=== PATIENT | male | born 1995 | race African-American/Black ===

== ENCOUNTER 2016-12-04 13:50 | Emergency (ER) ==
[2016-12-04 13:57] VITALS: BMI 39.1
[2016-12-04 15:16] LABS: BASOPHILS # (AUTO) 0.1 K/uL (0-0.2); BASOPHILS % (AUTO) 0.4 % (0.0-3.0); EOSINOPHILS # (AUTO) 0.5 K/ul (0.0-0.7); EOSINOPHILS % (AUTO) 3.3 % (0.0-7.0); HEMOGLOBIN 14.5 g/dl (14.0-18.0); IMMATURE GRANULOCYTE % (AUTO) 0.4 % (0.0-5.0); LYMPHOCYTES % (AUTO) 21.5 (10.0-50.0); MEAN CORPUSCULAR HEMOGLOBIN 29.9 pg (27.0-31.0); MEAN CORPUSCULAR HGB CONC 34.5 (31.8-35.4); MEAN CORPUSCULAR VOLUME 86.6 fl (80.0-94.0); MONOCYTES % (AUTO) 7.3 (0-10); NEUTROPHILS # (AUTO) 9.3 K/ul (2.0-6.9); NEUTROPHILS % (AUTO) 67.1; PLATELET COUNT 358 10^3/uL (140-440); RED BLOOD COUNT 4.85 10^6/ul (4.70-6.10); WHITE BLOOD COUNT 13.76 K/ul (4.2-10.2)
[2016-12-04 15:31] LABS: BILIRUBIN,URINE Negative (NEGATIVE); KETONES,URINE Negative (NEGATIVE); LEUKOCYTE ESTERASE ,URINE Negative (NEGATIVE); NITRITE,URINE Negative (NEGATIVE); PH,URINE 8.5 (5-9); PROTEIN,URINE Negative (NEGATIVE); URINE, BLOOD Negative (NEGATIVE)
[2016-12-04 15:32] LABS: ADD URINE MICROSCOPIC NO
--- NOTE | 2016-12-04 15:42 | CT ---
EXAM: CT Abdomen without contrast. CT Pelvis without contrast. HISTORY: Right lower quadrant pain. COMPARISON: None available. TECHNIQUE: Multiple axial images of the abdomen and pelvis were obtained without intravenous contra st. Images were reformatted in the coronal plane. FINDINGS: Please note that evaluation of the abdominal and pelvic structures is limited due to lack of intravenous contrast. Left lower lobe calcified granuloma noted. No acute osseous abnormality is seen. The liver, gallbladder, pancreas, spleen, adrenal glands, and kidneys demonstrate normal contour. There is focal dilatation of the appendiceal tip to approximately 1.4 cm on coronal image 36 and axi al image 69 with mild adjacent inflammation. The bowel is otherwise unremarkable. There is no evid ence for perforation or abscess. No free fluid identified. Urinary bladder is unremarkable. IMPRESSION: Critical result: Acute appendicitis. Comment: Findings were discussed with Dr. Bolanos at 3:37 p.m. on 12/04/2016.
[2016-12-04 15:43] LABS: ALBUMIN 3.8 g/dL (3.4-5.0); ALBUMIN/GLOBULIN RATIO 0.95; ANION GAP 13.3; BILIRUBIN,TOTAL 0.2 mg/dL (0.00-1.20); BUN/CREATININE RATIO 8.69; CALCIUM 9.5 mg/dL (8.2-10.2); CREATININE 0.92 mg/dL (0.60-1.10); POTASSIUM 4.3 mmol/L (3.5-5.1); TOTAL PROTEIN 7.8 g/dL (6.4-8.2)
--- NOTE | 2016-12-04 15:48 | ED.PDOC ---
General ED Provider: Dr. BRITTANI CHAVEZ Chief Complaint: Abdominal Pain Stated Complaint: abdominal pain Time Seen by Physician: 14:00 (last meal /drink 10 min ago) Mode of Arrival: Walk-In Information Source: Patient Exam Limitations: No limitations Primary Care Provider: SARWAT FOREMAN Nursing and Triage Documentation Reviewed and Agree: Yes GI Complaint Exam - Abdominal Pain Complaint/Exam Onset: Gradual Duration: 2 days Symptoms Are: Still present Timing: Constant Initial Severity: Moderate Current Severity: Moderate Location of Pain: RLQ Character: Reports: Cramping Aggravating: Reports: Movement, Food Alleviating: Reports: None Associated Signs and Symptoms: Denies: Diaphoresis, Fever, Cough, Chest pain, Dizziness, Back pain, Constipation, Blood in stool, Dysuria, Urinary frequency, Decreased urine output, Decreased appetite, Discharge, Nausea, Vomiting, Diarrhea, Decreased activity AAA Risk Factors: Reports: None Cardiac Risk Factors: Reports: None Testicular Torsion Risk Factors: Reports: None Surgical Obstruction Risk Factors: Reports: None Related Surgical History: Reports: None Abdominal Findings: Present: None Differential Diagnoses: Appendicitis Review of Systems - Review Of Systems Constitutional: Reports: No symptoms Eyes: Reports: No symptoms Ears, Nose, Mouth, Throat: Reports: No symptoms Respiratory: Reports: No symptoms Cardiac: Reports: No symptoms GI: Reports: Abdominal pain : Reports: No symptoms Musculoskeletal: Reports: No symptoms Skin: Reports: No symptoms Neurological: Reports: No symptoms Endocrine: Reports: No symptoms Hematologic/Lymphatic: Reports: No symptoms All Other Systems: Reviewed and Negative Past Medical History - Past Medical History Previously Healthy: Yes Endocrine: Reports: None Cardiovascular: Reports: None Respiratory: Reports: None Hematological: Reports: None Gastrointestinal: Reports: None Genitourinary: Reports: None Neuro/Psych: Reports: None Musculoskeletal: Reports: None Cancer: Reports: None - Surgical History General Surgical History: Reports: None - Family History Family History: Reports: Unknown - Social History Smoking Status: Current every day smoker, Heavy tobacco smoker Hx Substance Use: No Alcohol Screening: None Physical Exam - Physical Exam Appearance: Well-appearing, No pain distress, Well-nourished Eyes: LAVONNE, EOMI, Conjunctiva clear ENT: Ears normal, Nose normal, Oropharynx normal Respiratory: Airway patent, Breath sounds clear, Breath sounds equal, Respirations nonlabored Cardiovascular: RRR, Pulses normal, No rub, No murmur GI/: Tender (rlq) Musculoskeletal: Normal strength, ROM intact, No edema, No calf tenderness Skin: Warm, Dry, Normal color Neurological: Sensation intact, Motor intact, Reflexes intact, Cranial nerves intact, Alert, Oriented Psychiatric: Affect appropriate, Mood appropriate Interpretation - Radiology Interpretation Radiology Interpretation By: Radiologist Radiology Results: Positive (appendicitis) Critical Care Note - Critical Care Note Total Time (mins): 0 Course - Course Hematology/Chemistry: 12/04/16 15:11 Orders, Labs, Meds: Lab Review 12/04/16 12/04/16 14:40 15:11 WBC 13.76 H RBC 4.85 Hgb 14.5 Hct 42.0 MCV 86.6 MCH 29.9 MCHC 34.5 RDW Coeff of Enrrique 13.4 Plt Count 358 Immature Gran % (Auto) 0.4 Neut % (Auto) 67.1 Lymph % (Auto) 21.5 [place] % (Auto) 7.3 Eos % (Auto) 3.3 Baso % (Auto) 0.4 Immature Gran # (Auto) 0.1 Neut # 9.3 H Lymph # 3.0 [place] # 1.0 Eos # 0.5 Baso # 0.1 Urine Color Yellow Urine Clarity Clear Urine pH 8.5 Ur Specific [place] 1.020 Urine Protein Negative Urine Glucose (UA) Negative Urine Ketones Negative Urine Blood Negative Urine Nitrite Negative Urine Bilirubin Negative Urine Urobilinogen 0.2 Ur Leukocyte Esterase Negative Orders Category Date Time Status CBC W/ AUTO DIFF Stat LAB 12/04/16 15:11 Completed COMPREHENSIVE METABOLIC PANEL Stat LAB 12/04/16 15:11 Received URINALYSIS C & S IF INDICATED Stat LAB 12/04/16 14:[address] ABDOMEN/PELVIS WO CONTRAST Stat RADS 12/04/16 15:03 Completed Vital Signs: Temp Pulse Resp BP Pulse Ox 12/04/16 13:50 98.4 F 88 16 153/85 H 97 Departure - Departure Time of Disposition: 15:48 Disposition: [facility] SHORT-TRM [facility]OSP Discharge Problem: Abdominal pain Appendicitis Qualifiers: Appendicitis type: acute appendicitis Instructions: Abdominal Pain (ED) Condition: Good Pt referred to PMD for follow-up: Yes Allergies/Adverse Reactions: Allergies No Known Allergies Allergy (Unverified 12/04/16 13:58) Home Medications: Ambulatory Orders 1 [No Reported Medications] 12/04/16 Disposition Discussed With: Patient, Family
[2016-12-04 16:01] VITALS: BP 129/85; TEMP 98
== END 2016-12-04 17:30 | disposition short-term general hospital (02) ==
LOC: ED 13:50
DX: K35.80 Unspecified acute appendicitis (principal); F17.210 Nicotine dependence, cigarettes, uncomplicated
CPT/HCPCS: 36415; 80053; 81001; 85025; 99285

== ENCOUNTER 2016-12-04 17:35 | Outpatient (CLI) ==
[2016-12-04 13:57] VITALS: BMI 39.1
== END 2016-12-04 17:36 | disposition home or self-care (01) ==
LOC: AMBL 17:35
PROVIDERS: ATTEND Internal Medicine
DX: K35.80 Unspecified acute appendicitis (principal)